=== PATIENT | female | born 1990 | race Hispanic/Latino ===

== ENCOUNTER 2017-01-26 19:35 | Emergency (ER) | payer SELFPAY | END 2017-01-26 22:30 | disposition left against medical advice (07) | LOC: ED 19:35 | DX: R10.9 Unspecified abdominal pain (principal); Z53.21 Procedure and treatment not carried out due to patient leaving prior to being seen by health care provider ==

== ENCOUNTER 2017-05-18 08:40 | Emergency (ER) | payer OTHER ==
--- NOTE | 2017-05-18 12:46 | Ultrasound Report ---
Sonogram of palpable area umbilical region: History: Umbilical discomfort small umbilical hernia. Findings: There is mixed echogenic mass measuring 4.7 x 2 6 cm in diameter noted in the palpable region of the umbilical area. No bowel is identified within the mass. No calcifications seen. Impression: Probable umbilical hernia containing fat. Solid abdominal wall mass cannot be excluded. Recommend CT scan for further evaluation.
--- NOTE | 2017-05-18 12:48 | Emergency Department Report ---
ED Abdominal Pain HPI - General Chief Complaint: Skin/Abscess/Foreign Body Stated Complaint: BUMP ON STOMACH/ABD PAIN Time Seen by Provider: 05/18/17 11:31 Source: patient Mode of arrival: Ambulatory Limitations: No Limitations - History of Present Illness MD Complaint: other Location: periumbilical - Related Data Previous Rx's Medication Instructions Recorded Last Taken Type Acetaminophen [Acetaminophen TAB] 500 mg PO Q6HR PRN #30 tablet 05/18/17 Unknown Rx Docusate Sodium [Colace CAP] 100 mg PO BID PRN #1 bottle 05/18/17 Unknown Rx Allergies Allergy/AdvReac Type Severity Reaction Status Date / Time erythromycin base Allergy Hives Verified 05/18/17 08:48 [From Erythrocin] ED Review of Systems ROS: Stated complaint: BUMP ON STOMACH/ABD PAIN Other details as noted in HPI Constitutional: denies: chills, fever Eyes: denies: eye pain, eye discharge, vision change ENT: denies: ear pain, throat pain Respiratory: denies: cough, shortness of breath, wheezing Cardiovascular: denies: chest pain, palpitations Endocrine: no symptoms reported Gastrointestinal: abdominal pain (small umbilical hernia for several months). denies: nausea, diarrhea Genitourinary: denies: urgency, dysuria, discharge Musculoskeletal: denies: back pain, joint swelling, arthralgia Skin: denies: rash, lesions Neurological: denies: headache, weakness, paresthesias Psychiatric: denies: anxiety, depression Hematological/Lymphatic: denies: easy bleeding, easy bruising ED Past Medical Hx - Past Medical History Previous Medical History?: No - Surgical History Past Surgical History?: No - Social History Smoking Status: Never Smoker Substance Use Type: None - Medications Home Medications: Home Medications Medication Instructions Recorded Confirmed Last Taken Type Acetaminophen [Acetaminophen TAB] 500 mg PO Q6HR PRN #30 tablet 05/18/17 Unknown Rx Docusate Sodium [Colace CAP] 100 mg PO BID PRN #1 bottle 05/18/17 Unknown Rx ED Physical Exam - General Limitations: No Limitations General appearance: alert, in no apparent distress - Head Head exam: Present: atraumatic, normocephalic - Eye Eye exam: Present: normal appearance, PERRL, EOMI - ENT ENT exam: Present: mucous membranes moist - Neck Neck exam: Present: normal inspection - Respiratory Respiratory exam: Present: normal lung sounds bilaterally. Absent: respiratory distress - Cardiovascular Cardiovascular Exam: Present: regular rate, normal rhythm. Absent: systolic murmur, diastolic murmur, rubs, gallop - GI/Abdominal GI/Abdominal exam: Present: soft (abdomen soft nontender small walnut sized umbilical hernia and umbilicus at 4 o'clock position. It is reducible on light palpation nontender nonpainful to patient), normal bowel sounds (bwoel sounds positive all 4 quadrants), hernia (small palpable umbilical hernia which is reducible upon clinical exam and palpation) - Extremities Exam Extremities exam: Present: normal inspection - Back Exam Back exam: Present: normal inspection - Neurological Exam Neurological exam: Present: alert, oriented X3, CN II-XII intact, normal gait - Psychiatric Psychiatric exam: Present: normal affect, normal mood - Skin Skin exam: Present: warm, dry, intact, normal color. Absent: rash ED Course Vital Signs 05/18/17 08:42 Temperature 98.9 F Pulse Rate 94 H Respiratory 22 Rate Blood Pressure 151/82 O2 Sat by Pulse 99 Oximetry ED Medical Decision Making - Medical Decision Making A/P: Small reducible umbilical hernia 1-ultrasound and physical exam consistent with nondangerous small umbilical hernia. Patient is passing gas and stool. Hernia is easily reducible on physical exam and palpation with minimal to no tenderness. No cellulitis or erythema at site no fluctuance at site. 2-educated patient on signs and symptoms of hernias and how they are repaired provided her with literature [email or web address]&source=search_result& selectedTitle=[email or web address]_type=[email or web address]_rank=1 3-patient referred to outpatient surgery for hernia repair 4-I advised patient to return to the ED for any fevers worsened abdominal pain and inability to tolerate food or liquid by mouth if she is not passing gas or stool or for any redness or discharge from site of umbilicus. Patient stated she understood my instructions Critical care attestation.: If time is entered above; I have spent that time in minutes in the direct care of this critically ill patient, excluding procedure time. ED Disposition Clinical Impression: Umbilical hernia Qualifiers: Obstruction and gangrene presence: without obstruction or gangrene Qualified Code(s): K42.9 - Umbilical hernia without obstruction or gangrene Disposition: DC-01 TO HOME OR SELFCARE Is pt being admited?: No Does the pt Need Aspirin: No Condition: Stable Instructions: Umbilical Hernia (ED) Prescriptions: Acetaminophen [Acetaminophen TAB] 500 mg PO Q6HR PRN #30 tablet PRN Reason: Pain Docusate Sodium [Colace CAP] 100 mg PO BID PRN #1 bottle PRN Reason: Constipation Referrals: RAHEL BOYD DO [Staff Physician] - 3-5 Days [facility] [Outside] - 3-5 Days Forms: Work/School Release Form(ED) Time of Disposition: 13:10
[2017-05-18 13:21] VITALS: BP 148/84
== END 2017-05-18 13:20 | disposition home or self-care (01) ==
LOC: ED 08:40
DX: K42.9 Umbilical hernia without obstruction or gangrene (principal)
CPT/HCPCS: 76705; 99283

== ENCOUNTER 2017-08-29 16:44 | Emergency (ER) | payer SELFPAY ==
[2017-08-29 17:35] LABS: HCG Qualitative,Urine Negative (Negative)
[2017-08-29 17:36] LABS: Bilirubin,Urine NEG (Negative); Blood,Urine LG (Negative); Color,Urine Yellow (Yellow); Mucus,Urine 1+ /HPF; Urobilinogen,Urine < 2.0 mg/dL (<2.0)
--- NOTE | 2017-08-29 18:10 | Emergency Department Report ---
ED Female HPI - General Chief complaint: Urogenital-Female Stated complaint: HERNIA Time Seen by Provider: 08/29/17 18:10 Source: patient Mode of arrival: Ambulatory Limitations: No Limitations - History of Present Illness Initial comments: This is a 27-year-old female who presents with vaginal bleeding after intercourse today around 1400. Patient reports filling pressure and a burst inside the vagina after intercourse today. Patient reports putting her hand there and filling a large amount of blood and so she decided to come in for evaluation. Patient admits to having a history of umbilical hernia with no acute symptoms from that. Patient states she is not wearing a pad at this time , the bleeding has decreased. Denies low pelvic pain, low back pain, fever, frequency, urgency, and dysuria. MD Complaint: vaginal bleeding -: This afternoon Time: 14:00 Location: labia Radiation: non-radiating Severity: mild Severity scale (0 -10): 1 Consistency: intermittent Improves with: none Worsens with: intercourse Are you Now?: No Last Menstrual Period: 06/12/17 EDC: 03/19/18 Associated Symptoms: denies other symptoms - Related Data Sexually active: Yes : 0 Para: 0 A: 0 Previous Rx's Medication Instructions Recorded Last Taken Type Acetaminophen [Acetaminophen TAB] 500 mg PO Q6HR PRN #30 tablet 05/18/17 Unknown Rx Docusate Sodium [Colace CAP] 100 mg PO BID PRN #1 bottle 05/18/17 Unknown Rx Hydrochlorothiazide 12.5 mg PO DAILY #30 tablet 08/29/17 Unknown Rx Lisinopril [Prinivil] 10 mg PO DAILY #30 tablet 08/29/17 Unknown Rx Allergies Allergy/AdvReac Type Severity Reaction Status Date / Time erythromycin base Allergy Hives Verified 05/18/17 08:48 [From Erythrocin] ED Review of Systems ROS: Stated complaint: HERNIA Other details as noted in HPI Constitutional: denies: chills, fever Respiratory: denies: cough, shortness of breath, wheezing Cardiovascular: denies: chest pain, palpitations Genitourinary: other (vaginal bleeding). denies: urgency, dysuria, discharge Skin: denies: rash, lesions Neurological: denies: headache, weakness, paresthesias ED Past Medical Hx - Past Medical History Previous Medical History?: Yes Additional medical history: umbilical hernia - Surgical History Past Surgical History?: No - Social History Smoking Status: Never Smoker Substance Use Type: None - Medications Home Medications: Home Medications Medication Instructions Recorded Confirmed Last Taken Type Acetaminophen [Acetaminophen TAB] 500 mg PO Q6HR PRN #30 tablet 05/18/17 Unknown Rx Docusate Sodium [Colace CAP] 100 mg PO BID PRN #1 bottle 05/18/17 Unknown Rx Hydrochlorothiazide 12.5 mg PO DAILY #30 tablet 08/29/17 Unknown Rx Lisinopril [Prinivil] 10 mg PO DAILY #30 tablet 08/29/17 Unknown Rx ED Physical Exam - General Limitations: No Limitations General appearance: alert, in no apparent distress - Respiratory Respiratory exam: Present: normal lung sounds bilaterally. Absent: respiratory distress - Cardiovascular Cardiovascular Exam: Present: regular rate, normal rhythm. Absent: systolic murmur, diastolic murmur, rubs, gallop - GI/Abdominal GI/Abdominal exam: Present: soft, normal bowel sounds - External exam: Present: normal external exam Speculum exam: Present: laceration (1 cm laceration to right labia minora, no active bleeding, surrounding skin intact no swelling or erythema) - Neurological Exam Neurological exam: Present: alert, oriented X3 - Psychiatric Psychiatric exam: Present: normal affect, normal mood - Skin Skin exam: Present: warm, dry, intact, normal color. Absent: rash ED Course Vital Signs 08/29/17 08/29/17 16:46 18:37 Temperature 98.6 F Pulse Rate 108 H 76 Respiratory 18 18 Rate Blood Pressure 149/110 Blood Pressure 151/101 [Left] O2 Sat by Pulse 98 99 Oximetry ED Medical Decision Making - Medical Decision Making This is a 27-year-old female who presents with vaginal bleeding from this afternoon. Patient was examined by me. Vitals are stable and in no acute distress. No labs ordered. Pelvic exam findings of 1 cm laceration to right labia minora, no active bleeding. Patient refused to have laceration closed with sutures. Instructed to keep area clean and monitor daily for signs and symptoms of infection. Blood pressure elevated, patient asymptomatic. Start hydrochlorothiazide and lisinopril for hypertension. Instructed to follow up with primary care provider in 3-5 days for management. Discharged home in stable condition. F/U with PCP or [facility]. Critical care attestation.: If time is entered above; I have spent that time in minutes in the direct care of this critically ill patient, excluding procedure time. ED Disposition Clinical Impression: Asymptomatic hypertension Laceration of labia minora Qualifiers: Encounter type: initial encounter Qualified Code(s): S31.41XA - Laceration without foreign body of vagina and vulva, initial encounter Hypertension Qualifiers: Hypertension type: essential hypertension Qualified Code(s): I10 - Essential ( primary) hypertension Disposition: TO HOME OR SELFCARE Is pt being admited?: No Does the pt Need Aspirin: No Condition: Stable Instructions: Laceration (ED), Hypertension (ED) Additional Instructions: Keep wound dry and clean for 48 hours. Avoid putting to much tension on wound site. Avoid intercourse until completely healed. Moderate caffeine consumption is acceptable. Begin and maintain aerobic exercise, with a goal of at least 30 minutes of moderate intensity, dynamic aerobic exercise (walking, jogging, cycling, or swimming) 5 days per week to total 150 minutes as tolerated or recommended by a physician. Follow up with Primary Care Provider in 3-5 days for management of high blood pressure. Follow-up with [facility] in 2-3 days. Return to ER if red, swollen, foul discharge, or fever. Prescriptions: Hydrochlorothiazide 12.5 mg PO DAILY #30 tablet Lisinopril [Prinivil] 10 mg PO DAILY #30 tablet Referrals: [facility] [Outside] - 3-5 Days [facility] [Outside] - 3-5 Days Time of Disposition: 18:51 Print Language: GREENLAND[place]
[2017-08-29 18:38] VITALS: BP 151/101
== END 2017-08-29 19:15 | disposition home or self-care (01) ==
LOC: ED 16:44
DX: S31.41XA Laceration without foreign body of vagina and vulva, initial encounter (principal); I10 Essential (primary) hypertension; Z88.1 Allergy status to other antibiotic agents; X58.XXXA Exposure to other specified factors, initial encounter; Y93.89 Activity, other specified; Y92.89 Other specified places as the place of occurrence of the external cause; Y99.8 Other external cause status
CPT/HCPCS: 81001; 81025; 99283